=== PATIENT | female | born 1945 | race Caucasian/White ===

== ENCOUNTER → 2017-06-06 | Outpatient (CLI) | payer MEDICARE, BC ==
[~2017-06-06] MED LIST: ASPI-496 PO; CHOL200012 PO; FUROSEMIDE 20 MG/2 ML ONE; LEVO75TA5 PO; LISI5TAB7 PO; METF500T4 PO; ONDA-39 PO; OXYC-302 PO; VENL37.511 PO; ZOLP-413 PO
== END | disposition home or self-care (01) ==
LOC: PETCFH 13:30
PROVIDERS: ATTEND Specialist
DX: N13.1 Hydronephrosis with ureteral stricture, not elsewhere classified (principal)
CPT/HCPCS: 78708; A9562; J1940

== ENCOUNTER 2017-06-16 06:40 | Day surgery (SDC) | payer MEDICARE, BC ==
[~2017-06-16] VITALS: Ht 162.6 cm; Wt 63.9 kg
[~2017-06-16 06:40] MED LIST changes: +BUPIVACAINE/PF 0.25% ONE; +EPINEPHRINE 1 MG/ML, 1ML ONE; -FUROSEMIDE 20 MG/2 ML ONE; +SILVER SULF. CRM 1% , 25GM ONE
[2017-06-16] MEDS ORDERED: LACTATED RINGERS 1,000 ML IV SCH (07:43)
[2017-06-16 07:45] VITALS: BP 145/81
[2017-06-16] MEDS ORDERED: CALC200T3 PO (07:54)
[2017-06-16] MEDS ORDERED: BIOT300T2 PO (07:54)
[2017-06-16] MEDS ORDERED: SENN-31 PO (07:54)
[2017-06-16] MEDS ORDERED: VITAMIN C PO (07:54)
[2017-06-16] MEDS ORDERED: FENTANYL PF 100 MCG/2ML ONE (09:05)
[2017-06-16] MEDS ORDERED: PROPOFOL 10 MG/ML, 20ML ONE (09:50)
[2017-06-16] MEDS ORDERED: ONDANSETRON 2MG/ML, 2ML ONE (09:50)
[2017-06-16] MEDS ORDERED: DEXAMETHASONE 4 MG/ML, 1ML ONE (09:50)
[2017-06-16] MEDS ORDERED: PROMETHAZINE 25 MG/ML, 1ML IV PRN (10:00)
[2017-06-16] MEDS ORDERED: ALBUTEROL SULFATE 2.5 MG/3 ML NPPB PRN (10:00)
[2017-06-16] MEDS ORDERED: MEPERIDINE/PF 25MG/0.5ML IVPush PRN (10:00)
[2017-06-16] MEDS ORDERED: METOPROLOL 1 MG/ML, 5ML IV PRN (10:00)
[2017-06-16] MEDS ORDERED: ACETAMINOPHEN 325 MG TABLET PO PRN (10:00)
[2017-06-16] MEDS ORDERED: HYDROmorphone 1 MG/ML, 1ML IV PRN (10:00)
[2017-06-16] MEDS ORDERED: FENTANYL PF 100 MCG/2ML IV PRN (10:00)
[2017-06-16] MEDS ORDERED: OXYcodone 5 MG/5 ML ORAL.SOL UDC PO PRN (10:00)
[2017-06-16] MEDS ORDERED: hydrALAzine 20 MG/ML, 1ML IV PRN (10:00)
== END 2017-06-16 12:35 | disposition home or self-care (01) ==
LOC: OUT 06:40
PROVIDERS: ATTEND Specialist
DX: C54.1 Malignant neoplasm of endometrium (principal); N76.0 Acute vaginitis; F41.9 Anxiety disorder, unspecified; E03.9 Hypothyroidism, unspecified; E11.9 Type 2 diabetes mellitus without complications; Z79.82 Long term (current) use of aspirin; Z88.1 Allergy status to other antibiotic agents; Z91.040 Latex allergy status
CPT/HCPCS: 57105; 88305; J1100; J2405; J2704; J3010; J7120; J0171; J3490

== ENCOUNTER → 2017-07-08 | Outpatient (CLI) | payer MEDICARE, BC ==
[~2017-07-08] MED LIST changes: +BIOT300T2 PO; -BUPIVACAINE/PF 0.25% ONE; +CALC200T3 PO; -CHOL200012 PO; +CHOL200074 PO; -EPINEPHRINE 1 MG/ML, 1ML ONE; -ONDA-39 PO; +ONDA4TAB12 PO; +SENN-31 PO; -SILVER SULF. CRM 1% , 25GM ONE; +VITAMIN C PO
== END | disposition home or self-care (01) ==
LOC: ROC 10:04
PROVIDERS: ATTEND Radiology Radiation Oncology
DX: C54.1 Malignant neoplasm of endometrium (principal)
CPT/HCPCS: G0463

== ENCOUNTER → 2017-08-11 | Outpatient (CLI) | payer MEDICARE, BC | END | disposition home or self-care (01) | LOC: ROC 12:45 | PROVIDERS: ATTEND Radiology Radiation Oncology | DX: C54.1 Malignant neoplasm of endometrium (principal); C79.51 Secondary malignant neoplasm of bone; N95.0 Postmenopausal bleeding; E11.9 Type 2 diabetes mellitus without complications; E03.9 Hypothyroidism, unspecified; Z90.710 Acquired absence of both cervix and uterus; Z85.71 Personal history of Hodgkin lymphoma | CPT/HCPCS: G0463 ==

== ENCOUNTER → 2017-10-03 | Outpatient (CLI) | payer MEDICARE, BC | END | disposition home or self-care (01) | LOC: ROC 13:44 | PROVIDERS: ATTEND Radiology Radiation Oncology | DX: C54.1 Malignant neoplasm of endometrium (principal) | CPT/HCPCS: G0463 ==

== ENCOUNTER 2017-10-13 10:37 | Day surgery (SDC) | payer MEDICARE, BC ==
[~2017-10-13] VITALS: Ht 162.6 cm; Wt 64.0 kg
[~2017-10-13 10:37] MED LIST changes: +BUPIVACAINE/PF 0.25% ONE; +EPINEPHRINE 1 MG/ML, 1ML ONE
[2017-10-13] MEDS ORDERED: LACTATED RINGERS 1,000 ML IV SCH (11:34)
[2017-10-13] MEDS ORDERED: PLEASE ENTER HEIGHT AND WEIGHT MC SCH (12:00)
[2017-10-13] MEDS ORDERED: MIDAZOLAM 1 MG/ML, 2ML ONE ×2 (12:33→12:54)
[2017-10-13 12:37] LABS: INTERNATIONAL NORMALIZED RATIO 0.98 (0.93-1.1); PROTHROMBIN TIME 10.1 Seconds (9.6-11.5)
[2017-10-13] MEDS ORDERED: FENTANYL PF 100 MCG/2ML ONE ×2 (12:54→13:04)
[2017-10-13] MEDS ORDERED: ONDANSETRON 2MG/ML, 2ML ONE ×2 (12:54→13:04)
[2017-10-13] MEDS ORDERED: DEXAMETHASONE 4 MG/ML, 1ML ONE ×3 (12:54→13:04)
[2017-10-13] MEDS ORDERED: PROPOFOL 10 MG/ML, 20ML ONE ×2 (12:54→13:04)
[2017-10-13] MEDS ORDERED: KETOROLAC 30 MG/1 ML ONE (13:05)
[2017-10-13] MEDS ORDERED: HYDROmorphone 1 MG/ML, 1ML IV PRN (13:30)
[2017-10-13] MEDS ORDERED: ACETAMINOPHEN 325 MG TABLET PO PRN (13:30)
[2017-10-13] MEDS ORDERED: OXYcodone 5 MG/5 ML ORAL.SOL UDC PO PRN (13:30)
[2017-10-13] MEDS ORDERED: hydrALAzine 20 MG/ML, 1ML IV PRN (13:30)
[2017-10-13] MEDS ORDERED: PROMETHAZINE 25 MG/ML, 1ML IV PRN (13:30)
[2017-10-13] MEDS ORDERED: MEPERIDINE/PF 25MG/0.5ML IVPush PRN (13:30)
[2017-10-13] MEDS ORDERED: FENTANYL PF 100 MCG/2ML IV PRN (13:30)
[2017-10-13] MEDS ORDERED: ONDANSETRON 2MG/ML, 2ML IVPush PRN (13:30)
[2017-10-13] MEDS ORDERED: LABETALOL 5MG/ML, 20ML IV PRN (13:30)
[2017-10-13] MEDS ORDERED: OXYcodone 5 MG/5 ML ORAL.SOL UDC ONE (13:41)
[2017-10-13] MEDS ORDERED: ACETAMINOPHEN 650 MG/20.3 ML UDC ONE (13:41)
== END 2017-10-13 16:20 | disposition home or self-care (01) ==
LOC: OUT 10:37
PROVIDERS: ATTEND Specialist
DX: C54.1 Malignant neoplasm of endometrium (principal); N76.5 Ulceration of vagina; I10 Essential (primary) hypertension; F41.9 Anxiety disorder, unspecified; E03.9 Hypothyroidism, unspecified; E11.9 Type 2 diabetes mellitus without complications; Z86.718 Personal history of other venous thrombosis and embolism; Z85.71 Personal history of Hodgkin lymphoma; Z91.040 Latex allergy status; Z88.2 Allergy status to sulfonamides; Z91.048 Other nonmedicinal substance allergy status; Z87.440 Personal history of urinary (tract) infections; Z90.49 Acquired absence of other specified parts of digestive tract; Z90.710 Acquired absence of both cervix and uterus; Z90.722 Acquired absence of ovaries, bilateral; Z83.3 Family history of diabetes mellitus; Z80.6 Family history of leukemia; Z80.3 Family history of malignant neoplasm of breast; Z80.1 Family history of malignant neoplasm of trachea, bronchus and lung; Z82.49 Family history of ischemic heart disease and other diseases of the circulatory system
CPT/HCPCS: 36415; 57100; 85610; 85730; 88305; 93005; J1100; J1885; J2250; J2405; J2704; J3010; J0171; J3490

== ENCOUNTER → 2017-11-17 | Outpatient (CLI) | payer MEDICARE, BC ==
[~2017-11-17] MED LIST changes: -BUPIVACAINE/PF 0.25% ONE; -EPINEPHRINE 1 MG/ML, 1ML ONE
== END ==
LOC: ROC 09:40
PROVIDERS: ATTEND Radiology Radiation Oncology
DX: Z02.9 Encounter for administrative examinations, unspecified (principal)